=== PATIENT | female | born 1990 | race Caucasian/White ===

== ENCOUNTER 2023-02-28 08:43 | Outpatient (CLI) | payer OTHER, SELFPAY | END 2023-02-28 08:44 | disposition home or self-care (01) | LOC: NFLDREF 03-01 09:40 | PROVIDERS: PCP Physician Assistant Medical; Referring Provider Physician Assistant Medical; Visit Provider Physician Assistant Medical | DX: Z00.00 Encounter for general adult medical examination without abnormal findings (principal); I10 Essential (primary) hypertension; Z13.29 Encounter for screening for other suspected endocrine disorder; Z13.6 Encounter for screening for cardiovascular disorders | CPT/HCPCS: 80048; 80061; 84443 ==

== ENCOUNTER 2024-09-25 13:51 | Outpatient (CLI) | payer OTHER, SELFPAY ==
[2024-09-25 23:46] LABS: Chlamydia DNA Amplified* NOT DETECTED (No Detected); GC DNA Amplified* NOT DETECTED (No Detected)
== END 2024-09-25 13:52 | disposition home or self-care (01) ==
LOC: LKVREF 13:51
PROVIDERS: PCP Physician Assistant Medical; Visit Provider Emergency Medicine
DX: Z11.3 Encounter for screening for infections with a predominantly sexual mode of transmission (principal)
CPT/HCPCS: 87491; 87591